=== PATIENT | female | born 1950 | race Caucasian/White ===

== ENCOUNTER → 2016-10-19 | Outpatient (CLI) | payer BC ==
[2016-10-19 11:48] LABS: BASOPHILS # (AUTO) 0.03 10*3/UL; BASOPHILS % (AUTO) 0.3 % (0-1); EOSINOPHILS % (AUTO) 0.9 % (0-8); HEMATOCRIT 40.1 % (37.0-47.0); HEMOGLOBIN 13.8 g/dL (12.0-16.0); IMM GRAN % (AUTO) 0.3 % (0-5); IMM GRAN# (AUTO) 0.03 10*3/UL; LYMPHOCYTES # (AUTO) 1.37 10*3/uL; LYMPHOCYTES % (AUTO) 12.2 % (10-50); MEAN CORPUSCULAR HEMOGLOBIN 29.7 PG (27-31); MEAN CORPUSCULAR HGB CONC 34.4 g/dL (33-37); MEAN PLATELET VOLUME 9.8 FL (7.4-12.2); MONOCYTES # (AUTO) 0.72 10*3/UL (0.3-0.8); MONOCYTES % (AUTO) 6.4 % (5-15); NEUTROPHILS # (AUTO) 8.97 10*3/UL; NEUTROPHILS % (AUTO) 79.9 % (50-80); RDW COEFFICIENT OF VARIATION 12.9 % (11.5-14.5); RED BLOOD COUNT 4.65 10^6/uL (4.20-5.40); WHITE BLOOD COUNT 11.22 10^3/uL (4.8-10.8)
[2016-10-19 11:51] LABS: PLATELET MORPHOLOGY COMMENT NORMAL MORPHOLOGY (NORM)
[2016-10-19 12:31] LABS: BILIRUBIN,URINE NEGATIVE (NEG); CLARITY,URINE CLEAR (CLEAR); GLUCOSE, URINE (UA) NEGATIVE (NEG); LEUKOCYTE ESTERASE ,URINE SMALL (NEG); NITRATE,URINE NEGATIVE (NEG); OCCULT BLOOD,URINE SMALL (NEG); PROTEIN,URINE NEGATIVE (NEG); UROBILINOGEN,URINE 0.2 mg/dL (0.2)
[2016-10-19 12:48] LABS: URINE SAMPLE TYPE CLEAN CATCH URINE
[2016-10-19 12:49] LABS: BACTERIA,URINE MODERATE; SQUAMOUS EPITHELIAL CELL,UR RARE
== END ==
LOC: MOB LAB 10:55
PROVIDERS: ATTEND Nurse Practitioner Family
DX: R10.32 Left lower quadrant pain (principal); R10.31 Right lower quadrant pain
CPT/HCPCS: 36415; 81001; 85025; 87088

== ENCOUNTER 2016-10-21 09:46 | Emergency (ER) | payer BC ==
[2016-10-21] MEDS ORDERED: NORMAL SALINE 10 ML SYRINGE FLUSH IVP PRN (09:56)
[2016-10-21] MEDS ORDERED: Sodium Chloride 0.9% 1,000 ML PRIMARY IV ONE (09:56)
[2016-10-21 09:58] VITALS: RESP 16; TEMP 98.7
[2016-10-21 10:16] LABS: BASOPHILS # (AUTO) 0.04 10*3/UL; BASOPHILS % (AUTO) 0.9 % (0-1); EOSINOPHILS % (AUTO) 2.2 % (0-8); HEMATOCRIT 36.8 % (37.0-47.0); HEMOGLOBIN 12.5 g/dL (12.0-16.0); IMM GRAN % (AUTO) 0.4 % (0-5); IMM GRAN# (AUTO) 0.02 10*3/UL; LYMPHOCYTES # (AUTO) 1.36 10*3/uL; LYMPHOCYTES % (AUTO) 29.4 % (10-50); MEAN CORPUSCULAR HEMOGLOBIN 29.4 PG (27-31); MEAN PLATELET VOLUME 9.3 FL (7.4-12.2); MONOCYTES # (AUTO) 0.32 10*3/UL (0.3-0.8); MONOCYTES % (AUTO) 6.9 % (5-15); NEUTROPHILS # (AUTO) 2.78 10*3/UL; NEUTROPHILS % (AUTO) 60.2 % (50-80); RDW COEFFICIENT OF VARIATION 12.7 % (11.5-14.5); RED BLOOD COUNT 4.25 10^6/uL (4.20-5.40); WHITE BLOOD COUNT 4.62 10^3/uL (4.8-10.8)
[2016-10-21 10:17] LABS: BILIRUBIN,URINE NEGATIVE (NEG); CLARITY,URINE CLEAR (CLEAR); GLUCOSE, URINE (UA) NEGATIVE (NEG); LEUKOCYTE ESTERASE ,URINE NEGATIVE (NEG); NITRATE,URINE NEGATIVE (NEG); OCCULT BLOOD,URINE SMALL (NEG); PH,URINE 5.5 (5.0-8.5); PROTEIN,URINE NEGATIVE (NEG); UROBILINOGEN,URINE 0.2 EU/dL (0.2)
[2016-10-21 10:22] LABS: PLATELET MORPHOLOGY COMMENT NORMAL MORPHOLOGY (NORM)
[2016-10-21 10:23] LABS: RBC,URINE 0-3 /hpf; URINE SAMPLE TYPE CATH SPECIMEN
[2016-10-21 10:34] LABS: AMYLASE 59 U/L (30-110); ASPARTATE AMINO TRANSFERASE 27 IU/L (8-39); BILIRUBIN,TOTAL 0.4 mg/dL (0.3-1.2); BLOOD UREA NITROGEN 17 mg/dL (7-22); BUN/CREATININE RATIO 21.25 (6-20); CALCIUM 9.2 mg/dL (8.7-10.7); CHLORIDE 107 meq/L (98-112); CREATININE 0.8 mg/dL (0.50-1.20); EST GLOMERULAR FILTRATION > 60 (>60 ml/min/1.73m(2)); GLUCOSE 118 mg/dL (78-110); POTASSIUM 3.9 meq/L (3.8-5.2); SODIUM 141 meq/L (135-145); TOTAL PROTEIN 7.2 g/dL (6.1-8.0)
--- NOTE | 2016-10-21 12:43 | DI ---
HISTORY: Abdominal pain. COMPARISON: None available. TECHNIQUE: Contiguous axial images of the abdomen and pelvis were obtained and submitted for interpr etation. FINDINGS: Limited sections of the lung bases demonstrate no focal pulmonary mass. There is possibly a small diaphragmatic hernia ([place]) posteriorly. The liver, spleen, pancreas, both kidneys, and both adrenal glands demonstrate no acute findings. The stomach is collapsed. There are clips at the gallbladder fossa. The GE junction is slightly thickened. Consider endoscopy where appropriate. There is moderate to severe constipation with thickening of the sigmoid colon. There is minimal surr ounding inflammatory change. Recommend correlation with colonoscopy. There is no overt obstruction at this time. There is no free air or free fluid. The small bowel loops are not dilated. The appen johanna is not clearly visualized although there are no secondary signs of appendicitis. The urinary bladder is distended. The uterus is not clearly identified, and possibly removed. The visualized osseous structures demonstrate no destructive abnormality. There is no solid pelvic mass noted. The aorta and IVC demonstrate no acute findings. There is atherosclerotic calcification of the aorta . IMPRESSION: 1. There is possibly a small diaphragmatic hernia ([place]) posteriorly. 2. The stomach is collapsed. There are clips at the gallbladder fossa. 3. The GE junction is slightly thickened. Consider endoscopy where appropriate. 4. Moderate to severe constipation with thickening of the sigmoid colon. There is minimal surrounding inflammatory change. Recommend correlation with colonoscopy. 5. There is atherosclerotic calcification of the aorta.
--- NOTE | 2016-10-22 03:51 | PDOC ---
Abdomen/Flank HPI - General Chief Complaint: Abdomen Pain Stated Complaint: Adominal Craps Date Seen by Provider: 10/21/16 Time Seen by Provider: 09:47 Source: POSITIVE: Patient Exam Limitations: POSITIVE: No limitations Nurse's Notes Reviewed & Considered: Yes - History of Present Illness Initial Comments: The patient is a 65-year-old female. She states that for the past 3 days she has had some pain in the left lower abdominal quadrant which "comes and goes". She states that she saw her nurse practitioner 2 days ago who prescribed nitrofurantoin for presumed urinary tract infection. She last states this morning approximately 2 and half hours ago. She's had an appendectomy, cholecystectomy and hysterectomy. No fevers or chills. No melena, hematochezia , hematemesis, dysuria or hematuria. Body Location Affected: REPORTS: Abdomen Timing: REPORTS: Intermittent Duration: >24 hours (3 days) Severity: Moderate Quality: REPORTS: "Pain" Abdominal Pain Onset Location: REPORTS: LLQ Abdominal Pain Radiation: REPORTS: No radiation Context: REPORTS: None Modifying Factors: improves with: Nothing Associated Symptoms: REPORTS: Denies symptoms Similar Symptoms Previously: No Recent Care Received: REPORTS: Recently Seen, Treated by MD (As above) Any Prior Injuries Related to Current Complaint?: No - Patient Home Medications Home Medications: Home Medications Fluticasone Propionate [Flonase Allergy Relief] 9.9 ml BLAINE BID #1 bottle Lisinopril 1 tab PO DAILY #90 tab 12/01/15 Sertraline HCl [Zoloft] 1 tab ORAL QD #90 tab 04/20/16 Hyoscyamine Sulfate 1 - 2 tab SL Q4H PRN #30 tab 10/19/16 Nitrofurantoin Macrocrystal [Nitrofurantoin] 1 tab PO BID #10 cap 10/19/16 Ciprofloxacin/Ciprofloxa HCl [Cipro Xr 500 mg Tablet] 500 mg PO Q12H #20 tbmp.24hr 10/21/16 Hydrocodone Bit/Acetaminophen [[place] 10-325 Tablet] 1 tab PO Q6H PRN #20 tab metroNIDAZOLE Tab [Flagyl Tab] 500 mg PO Q8H #30 tab 10/21/16 - Patient Allergies Allergies/Adverse Reactions: Allergies Allergy/AdvReac Type Severity Reaction Status Date / Time Sulfa (Sulfonamide Allergy SWELLING Verified 10/21/16 09:50 Antibiotics) Past Medical History - heen HEENT History:  Additional HEENT History: CATARACT EXTRACTION BOTH EYES. WEARS GLASSES Cardiovascular History: Hypertension Respiratory History: Denies History Additional Gastrointestinal History: MERKELS DIVERTICULUM. HX OF POLYPS Genitourinary History: Denies History Endocrine History: Denies History Musculoskeletal History: Arthritis Prosthesis or Implant: Yes (R FOOT) Additional Musculoskeletal History: FOOT PAIN Neurological History:  Additional Neurological History: GETS H/A WHEN B/P ELEVATED Blood Disorders: Denies History Psychiatric History: Anxiety Disorders History of Sexually Transmitted Diseases: No Cancer History: Breast Cancer Treatment / Date(s) of Treatment: RIGHT LUMPECTOMY AND RADIATION IN 2004 In Past Year Been Physically Harmed or Verbally Threatened: No History of MDRO: No History of Other Communicable Diseases: No Tobacco Use: Former Smoker Alcohol Use: None Substance Use Type: None Previous Surgical History: Yes Type / Date of Surgery: APPY/ RIGHT & LEFT BUNION/ SERGEY/ COLONOSCOPY/ HYST/ RIGHT BREAST LUMPECTOMY/ EXP SX IN FOR MERKELS DIVERTICULUM/ LEFT FOOT SX 25 YRS AGO Anesthesia Reactions: No Malignant Hyperthermia: No Significant Family History: No pertinent family hx, Heart disease Past Medical History Reviewed: Reviewed - No Changes ROS - Limitations ROS Limitations: No Limitations Constitution: REPORTS: Denies Symptoms Cardiovascular: REPORTS: Denies Cardiac Symptoms Respiratory: REPORTS: Denies Resp Symptoms Neurological: REPORTS: Denies Neuro Symptoms Gastrointestinal: REPORTS: Abdominal Pain Endocrine: REPORTS: Denies Symptoms Musculoskeletal: REPORTS: Denies MS Symptoms Genitourinary: REPORTS: Denies Symptoms Eyes: REPORTS: Denies Symptoms ENT: REPORTS: Denies Symptoms Skin: REPORTS: Denies Skin Symptoms Lympathic: REPORTS: Denies Lympathic Symptoms Immunologic: POSITIVE: Denies Symptoms Psychiatric: POSITIVE: Denies Psych Symptoms Abdominal/Flank Pain PE - General Appearance General Appearance: POSITIVE: Alert, Cooperative, No Acute Distress, No Evidence of Trauma - HEENT HEENT: POSITIVE: Head Inspection Nml, Eyes Inspection Nml, Ears Inspection Nml, Nose Inspection Nml, Oral/Dental Inspect. Nml, Pharynx Inspect. Nml, PERRL, EOMI - Neck Neck: POSITIVE: Normal Inspection, No Apparent Injury - Respiratory Respiratory: POSITIVE: No Respiratory Distress, Breath Sounds Normal, Chest Non- Tender - Cardiovascular Cardiovascular: POSITIVE: Regular Rate and Rhythm, Heart Sounds Normal, Equal Pulses, Strong Pulses Peripheral Pulses: Radial (R): 2+, Radial (L): 2+ - Chest Chest: POSITIVE: Non Tender - Abdomen Abdomen: Soft: (All Quadrants), Normal Bowel Sounds: (All Quadrants), Denies Tenderness: (RLQ), (LUQ), (RUQ), No Splenomegaly: (All Quadrants), No Hepatomegaly: (All Quadrants), No Guarding: (All Quadrants), No Rebound: (All Quadrants), No Palpable Pulse: (All Quadrants), No Palpabale Mass: (All Quadrants), No Distention: (All Quadrants), No Rigidity: (All Quadrants), Tenderness Noted: (LLQ) Additional Abdominal Details: Abdominal examination shows bowel sounds to be active. Discomfort on direct palpation left lower quadrant, without masses or organomegaly or rebound. - Back Back: POSITIVE: Normal Inspection - Skin Skin: POSITIVE: Intact, Normal For Race, Warm, Dry, No Rash - Extremities Extremity: Non-Tender: (All Extremities), Normal ROM: (All Extremities), Normal Inspection: (All Extremities) - Neurological Neurological: POSITIVE: Oriented X3, gem cutter Normal As Tested, Motor Normal, Sensation Normal, 5, 6 - Psychological Psychiatric: POSITIVE: Affect Appropriate, Mood Appropriate Images - Complete Complete: 1 - Area of pain Abdomen Progress - Results Reviewed by me Xrays/CTs/US Reviewed by me: Yes Discussed with Radiologist: Yes Radiology Findings: CT scan abdomen and pelvis with IV contrast shows thickening of the sigmoid colon with some mild inflammatory changes. There is prominent constipation proximal to this area. Lab Results Reviewed: Yes Lab Results:: Laboratory Results 10/21/16 10/21/16 Range/Units 10:00 10:10 WBC 4.62 L (4.8-10.8) 10^3/uL RBC 4.25 (4.20-5.40) 10^6/uL Hgb 12.5 (12.0-16.0) g/dL Hct 36.8 L (37.0-47.0) % MCV 86.6 (81-99) FL MCH 29.4 (27-31) PG MCHC 34.0 (33-37) g/dL RDW Std Deviation 39.7 (39-50) fL RDW Coeff of Sharri 12.7 (11.5-14.5) % Plt Count 290 (140-350) 10*3/uL MPV 9.3 (7.4-12.2) FL Immature Gran % (Auto) 0.4 (0-5) % Neut % (Auto) 60.2 (50-80) % Lymph % (Auto) 29.4 (10-50) % [place] % (Auto) 6.9 (5-15) % Eos % (Auto) 2.2 (0-8) % Baso % (Auto) 0.9 (0-1) % Immature Gran # (Auto) 0.02 10*3/UL Neut # (Auto) 2.78 10*3/UL Lymph # (Auto) 1.36 10*3/uL [place] # (Auto) 0.32 (0.3-0.8) 10*3/UL Eos # (Auto) 0.10 10*3/UL Baso # (Auto) 0.04 10*3/UL WBC Morphology Comment Normal morphology (NORM) Plt Morphology Comment Normal morphology (NORM) RBC Morph Comment Normal morphology (NORM) Sodium 141 (135-145) meq/L Potassium 3.9 (3.8-5.2) meq/L Chloride 107 (98-112) meq/L Carbon Dioxide 22 L (23-33) meq/L Anion Gap 12 (5-20) BUN 17 (7-22) mg/dL Creatinine 0.8 (0.50-1.20) mg/dL Estimated GFR > 60 (>60 ml/min/1.73m(2)) BUN/Creatinine Ratio 21.25 H (6-20) Glucose 118 H (78-110) mg/dL Calculated Osmolality 294.0 H (267-292) mOsm/kg Calcium 9.2 (8.7-10.7) mg/dL Total Bilirubin 0.4 (0.3-1.2) mg/dL AST 27 (8-39) IU/L ALT 33 (9-52) IU/L Alkaline Phosphatase 63 (38-126) IU/L Total Protein 7.2 (6.1-8.0) g/dL Albumin 4.2 (3.5-4.8) g/dL Globulin 3.0 (2.50-4.10) g/dL Albumin/Globulin Ratio 1.40 (1.3-2.0) mg/g Amylase 59 (30-110) U/L Lipase 193 (23-300) IU/L Ur Collection Type Cath specimen Urine Color Yellow Urine Clarity Clear (CLEAR) Urine pH 5.5 (5.0-8.5) Ur Specific [place] <=1.005 (1.005-1.030) Urine Protein Negative (NEG) mg/dl Urine Glucose (UA) Negative (NEG) mg/dL Urine Ketones Negative (NEG) Urine Occult Blood Small H (NEG) Urine Nitrate Negative (NEG) Urine Bilirubin Negative (NEG) Urine Urobilinogen 0.2 (0.2) EU/dL Ur Leukocyte Esterase Negative (NEG) Urine RBC 0-3 (NONE) /hpf Urine WBC None (NONE) Ur Squamous Epith Cells None (NONE) Ur Renal Epithelial Cell None (NONE) Urine Crystals None Urine Bacteria None (NONE) Urine Casts None (NONE) Urine Mucus None (NONE) Urine Trichomonas None (NONE) Urine Yeast None (NONE) Ur Culture Indicated? Culture not set - Patient's Progress Pain Medication Addressed: POSITIVE: Yes (Recommended Tylenol) School/Work Release Addressed: POSITIVE: Not Applicable Re-examine Time: 13:10 Re-Examine Comment: Patient feels better on discharge. Case discussed with Dr. Boyd, surgeon Status: POSITIVE: Improved, Re-Examined - Consult Consult (If Yes, Name of Consulting MD & Time Called): Yes (Dr. Boyd, surgeon, [id number]) Consulting MD will see pt:: POSITIVE: In Office Counseled: POSITIVE: Patient, RE: Lab Results, RE: Radiology Results, RE: DX, RE : Need for F/U Patient Care Time - Estimated PCT Patient Care Time (In Minutes): 40 Vital Signs - VS Reviewed Vital Signs Reviewed: Yes Discharge Clinical Impression: Diverticulitis large intestine, Abdominal pain Discharge Disposition: Discharged to Home Condition: Good Prescriptions / Orders: Ciprofloxacin/Ciprofloxa HCl [Cipro Xr 500 mg Tablet] 500 mg PO Q12H #20 tbmp.24hr metroNIDAZOLE Tab [Flagyl Tab] 500 mg PO Q8H #30 tab Hydrocodone Bit/Acetaminophen [[place] 10-325 Tablet] 1 tab PO Q6H PRN #20 tab PRN Reason: Pain Patient Instructions Given at Discharge: Diverticulitis (ED) Additional Instructions: Your CT scan does show some thickening of the lower bowel, which is located in the left lower part of your abdomen. There are also some inflammatory changes in this area. These findings are compatible with diverticulitis. There is also noted that you have considerable constipation backed up behind this area of your colon. Discontinue nitrofurantoin. Clear liquid diet for 24 hours. Take MiraLAX, one packet dissolved in water or juice 2-3 times a day for your constipation. Flagyl, one every 8 hours and Cipro, one every 12 hours for 10 days. I believe your symptoms and findings are most compatible with diverticulitis; however, since the CT was read as thickening of the sigmoid colon without a great deal of inflammatory changes, I do want you to see Dr. Boyd, surgeon, or Saturday of next week. He will probably want to do a colonoscopy to make sure that your diverticulitis resolving and make sure that there is not anything more serious causing the thickening of your lower bowel, such as a tumor. [place], one every 6 hours as necessary for pain. Return to the emergency room any time if you develop fevers and chills, vomiting, or if the pain becomes more severe. Follow Up With: CARLINE WANG [Primary Care Provider] - (Instructions as above. Medications as above. Return if condition worsens in any way. Follow-up with Dr. Boyd or Saturday of next week for reevaluation.)
== END 2016-10-21 13:40 | disposition home or self-care (01) ==
LOC: ER 09:46
DX: K57.32 Diverticulitis of large intestine without perforation or abscess without bleeding (principal); R10.32 Left lower quadrant pain
CPT/HCPCS: 74177; 80053; 81001; 81003; 82150; 83690; 85025; 96360; 96361; 99283; 99284; J7030